=== PATIENT | female | born 1980 | race Caucasian/White ===

== ENCOUNTER 2018-06-01 14:54 | Emergency (ER) | payer OTHER ==
[~2018-06-01] VITALS: Ht 165.1 cm; Wt 61.2 kg
[2018-06-01] MEDS ORDERED: FAMOTIDINE 20 MG/2 ML VIAL IV STA (15:49)
[2018-06-01] MEDS ORDERED: MAGNESIUM/ALUMINUM/SIMETHICONE 30 ML UDC PO ONE (16:00)
[2018-06-01] MEDS ORDERED: SUCRALFATE 1 GM/10 ML SUSP NG ONE (16:00)
[2018-06-01] MEDS ORDERED: METOCLOPRAMIDE HCL 10 MG/2ML VIAL IV ONE (16:00)
[2018-06-01] MEDS ORDERED: DIPHENHYDRAMINE HCL INJ 50 MG/ML VIAL IV ONE (16:00)
[2018-06-01] MEDS ORDERED: LIDOCAINE VISC 2% SOLN 15 ML UDC PO ONE (16:00)
[2018-06-01 16:38] LABS: BASOPHILS # (AUTO) 0.1 (0.0-0.1); BASOPHILS % 0.8 % (0.0-1.0); EOSINOPHILS % 0.1 % (0.0-6.0); HEMATOCRIT 38.7 % (34.2-44.1); HEMOGLOBIN 13.1 g/dL (12.0-16.0); LYMPHOCYTES # (AUTO) 2.7 (1.0-3.2); LYMPHOCYTES % 36.6 % (18.0-39.1); MEAN CORPUSCULAR HEMOGLOBIN 29.2 pg (28-32); MEAN CORPUSCULAR HGB CONC 33.9 g/dL (31-35); MEAN CORPUSCULAR VOLUME 86.4 fL (81-99); MONOCYTES # (AUTO) 0.6 (0.2-0.8); MONOCYTES % 7.8 % (4.4-11.3); NEUTROPHILS % 54.6 % (38.7-80.0); PLATELET COUNT 320 x10e3/uL (140-360); RED BLOOD COUNT 4.48 x10e6/uL (3.6-5.1); RED CELL DISTRIBUTION WIDTH 12.4 % (11.7-14.4)
[2018-06-01 16:52] LABS: ALANINE AMINOTRANSFERASE 20 IU/L (0-55); ALBUMIN 4.4 g/dL (3.5-5.0); ALBUMIN/GLOBULIN RATIO 1.4 (0.8-2.0); ALKALINE PHOSPHATASE 74 IU/L (40-150); ANION GAP 15.9 mmol/L (8-16); BLOOD UREA NITROGEN 9 mg/dL (7-26); BUN/CREATININE RATIO 10 (6-25); CALCIUM 9.4 mg/dL (8.4-10.2); CARBON DIOXIDE 22 mmol/L (22-29); CHLORIDE 102 mmol/L (98-107); CREATININE, SERUM 0.92 mg/dL (0.57-1.11); EST GLOMERULAR FILTRATION RATE > 60 ML/MIN (60-); GLUCOSE 96 mg/dL (74-118); LIPASE 12 U/L (8-78); MAGNESIUM 2.3 MG/DL (1.3-2.1); POTASSIUM 3.9 mmol/L (3.5-5.1); SODIUM 136 mmol/L (136-145)
--- NOTE | 2018-06-01 18:33 | Diagnostic Imaging Report ---
Exam: Head CT without contrast Indication: Fall from standing to left temporal area yesterday Comparison: None Technique: Axial images were obtained from the skull base to the vertex. Coronal and sagittal images reconstructed from the axial data. Dose modulation, iterative reconstruction, and/or weight based adjustment of the mA/kV was utilized to reduce the radiation dose to as low as reasonably achievable. 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 Extra-axial spaces: No masses. No fluid collections. Brain sulci: Normal for age. Ventricles: Normal size and configuration. Parenchyma: No abnormal density. No masses, hemorrhage, acute or chronic cortical vascular insults. Sellar/suprasellar region: No abnormalities. Craniocervical junction: Patent foramen magnum. No Chiari one malformation. Impression: Unremarkable head CT without contrast. A preliminary report was provided by Dr. Sharpe on 06/01/2018 6:32 PM. I have reviewed the images and agree with findings in the preliminary report. Signed by: Dr. Deja Ayala M.D. on 06/01/2018 7:44 PM
--- NOTE | 2018-06-01 18:48 | NUR ---
PATIENT REPORTS THAT SHE COLLECTED URINE SPECIMEN THEN DROPPED IT IN THE TOILET. INSTRUCTED PATIENT THAT URINE IS NEEDED. PATIENT VERBALIZED UNDERSTANDING
--- NOTE | 2018-06-01 19:16 | Diagnostic Imaging Report ---
Exam: Abdominal film Clinical History: Head injury, abdominal pain, nausea and vomiting Comparison: None. DISCUSSION: Frontal view of the abdomen shows mild focal dilation of a large bowel loop in the left lower quadrant, which measures 6.6 cm in diameter. The rest of the bowel shows no dilation. There is prominent residual contrast throughout the small bowel and colon, which obscures the bony structures. No acute bony abnormalities. IMPRESSION: 1. Mild focal dilation of a large bowel loop in the left lower quadrant. The rest of the bowel shows no dilation or definite obstruction as residual contrast is noted in the small and large bowel extending to the rectum. The staff physician below has personally reviewed this exam on the date of dictation. Signed by: Dr. Craig Jarrett M.D. on 06/01/2018 7:13 PM
[2018-06-01 19:31] VITALS: BP 108/78
== END 2018-06-01 19:49 | disposition home or self-care (01) ==
LOC: ER 14:54
DX: S00.83XA Contusion of other part of head, initial encounter (principal); G43.909 Migraine, unspecified, not intractable, without status migrainosus; W17.89XA Other fall from one level to another, initial encounter; Y92.008 Other place in unspecified non-institutional (private) residence as the place of occurrence of the external cause; K20.9 Esophagitis, unspecified
CPT/HCPCS: 36415; 70450; 74018; 80053; 83690; 83735; 84702; 85025; 99284; J1200; J2765

== ENCOUNTER → 2018-06-01 | Outpatient (CLI) | payer OTHER ==
--- NOTE | 2018-06-04 08:56 | Diagnostic Imaging Report ---
EXAM: Modified barium swallow with Speech Pathologist INDICATION: ^[id number] ^[id number] ^ACUTE GASTITIS/SYSPHAGIA/GASTROPARESIS COMPARISON: None available. RADIATION DOSE: Air Kerma (AK) value (6.1 mGy) has been reviewed. It is below the limits set by the Radiation Protocol Committee (RPC) committee. FINDINGS: See impression IMPRESSION: No evidence of penetration or aspiration. Please see speech pathology report for detailed description and recommendations. Signed by: Dr. Yusef Doty M.D. on 06/04/2018 8:52 AM
== END ==
LOC: DX 13:58
PROVIDERS: ATTEND Internal Medicine Gastroenterology
DX: K29.00 Acute gastritis without bleeding (principal); R13.14 Dysphagia, pharyngoesophageal phase; K21.0 Gastro-esophageal reflux disease with esophagitis
CPT/HCPCS: 74230